=== PATIENT | male | born 1970 | race Caucasian/White ===

== ENCOUNTER 2023-11-08 15:49 | Inpatient (IN) | payer OTHER ==
[2023-11-08 17:45] VITALS: BMI 25.8
[2023-11-08] MEDS ORDERED: NICOTINE POLACRILEX 2 MG LOZENGE BC PRN (19:40)
[2023-11-08] MEDS ORDERED: P-EPHED 60MG/TRIPROLIDI 2.5MG TABLET PO PRN (19:40)
[2023-11-08] MEDS ORDERED: ACETAMINOPHEN 325 MG TABLET (FP) PO PRN (19:40)
[2023-11-08] MEDS ORDERED: LOPERAMIDE HCL 2 MG CAPSULE PO PRN (19:40)
[2023-11-08] MEDS ORDERED: BISMUTH SUBSALICYLATE 524 MG/30 ML PO PRN (19:40)
[2023-11-08] MEDS ORDERED: BENZONATATE 200 MG CAPSULE PO PRN (19:40)
[2023-11-08] MEDS ORDERED: BENZOCAINE/MENTHOL (CHLORASEPTIC ) LOZENGE MM PRN (19:40)
[2023-11-08] MEDS ORDERED: DICYCLOMINE HCL 10 MG CAPSULE PO PRN (19:40)
[2023-11-08] MEDS ORDERED: MAGNESIUM HYDROX 2400MG/30ML ORAL SUSPENSION 30 ML CUP PO PRN (19:40)
[2023-11-08] MEDS ORDERED: POLYETHYLENE GLYCOL (HEALTHYLAX) 3350 17 GM PACKET PO PRN (19:40)
[2023-11-08] MEDS ORDERED: IBUPROFEN 400 MG TABLET (FP) PO PRN (19:40)
[2023-11-08] MEDS ORDERED: IBUPROFEN 600 MG TABLET (FP) PO PRN (19:40)
[2023-11-08] MEDS ORDERED: ONDANSETRON *ODT* 4 MG TABLET SL PRN (19:40)
[2023-11-08] MEDS ORDERED: NALOXONE (NARCAN) HCL 4 MG/0.1 ML SPRAY NS PRN (19:40)
[2023-11-08] MEDS ORDERED: guaiFENesin 600 MG TABLET.ER (FP) PO PRN (19:40)
[2023-11-08] MEDS ORDERED: NALOXONE HCL 0.4 MG/ML VIAL IM PRN (19:40)
[2023-11-08] MEDS ORDERED: diazePAM 5 MG TABLET ONE (22:05)
[2023-11-08] MEDS ORDERED: MELATONIN 5 MG TABLETS ONE (22:05)
[2023-11-08] MEDS: diazePAM 5 MG TABLET PO SCH (22:10)
[2023-11-08] MEDS: MELATONIN 5 MG TABLETS PO SCH (22:11)
[2023-11-08] MEDS: THIAMINE 100 MG TABLET PO SCH (22:11)
[2023-11-09] MEDS: methaDONE 40 MG, methaDONE 20 MG PO SCH (10:24)
[2023-11-09] MEDS: PRENATAL VITAMINS W/ FOLIC ACID TABLET (FP) PO SCH (10:25)
[2023-11-09] MEDS: methaDONE HCL 10 MG TABLET PO SCH (10:50)
[2023-11-09] MEDS: diazePAM 5 MG TABLET PO PRN (12:47)
[2023-11-09 12:50] LABS: HEMATOCRIT 39.1 % (35.4-49); HEMOGLOBIN 13.2 GM/dL (11.7-16.9); MCH 29.6 pg (25.7-33.7); MCHC 33.6 g/dl (32.0-35.9); MEAN PLT VOLUME 9.5 fl (7.5-11.1); PLATELET COUNT 201 10^3/uL (134-434); RBC 4.45 M/mm3 (4.00-5.60); RDW 14.6 % (11.9-15.9); WHITE BLOOD COUNT 5.7 K/mm3 (4.0-10.0)
[2023-11-09 14:08] LABS: POTASSIUM 4.7 mmol/L (3.5-5.1)
[2023-11-09 14:11] LABS: ALBUMIN 3.4 g/dl (3.4-5.0); BLOOD UREA NITROGEN 27.3 mg/dL (7-18); CALCIUM 8.6 mg/dL (8.5-10.1)
[2023-11-09 14:14] LABS: CREATININE 0.8 mg/dL (0.55-1.3)
[2023-11-09 14:15] LABS: BILIRUBIN,TOTAL 0.4 mg/dL (0.2-1)
[2023-11-09] MEDS: NICOTINE POLACRILEX 2 MG GUM BUC PRN (16:49)
[2023-11-09] MEDS: METHOCARBAMOL 500 MG TABLET PO PRN (22:43)
[2023-11-10] MEDS: diazePAM 5 MG TABLET PO SCH (05:52)
[2023-11-11] MEDS: diazePAM 5 MG TABLET PO SCH (05:56)
[2023-11-11] MEDS ORDERED: hydrOXYzine PAMOATE 25 MG CAPSULE (FP) PO PRN (13:42)
[2023-11-11] MEDS: MAG HYDROX/AL HYDROX/SIMETH 30 ML UNIT-DOSE CUP PO PRN (17:20)
[2023-11-11] MEDS: METHOCARBAMOL 500 MG TABLET PO PRN (21:52)
[2023-11-12] MEDS: diazePAM 5 MG TABLET PO ONE (06:02)
[2023-11-12 08:52] VITALS: BP 140/90; PULSE 80; RESP 16; TEMP 97.7
== END 2023-11-12 12:10 | disposition other institution (70) | DRG 897 ==
LOC: YASAS 15:49 → Y3N 20:48
PROVIDERS: ADMIT Allergy & Immunology; ATTEND Surgery
PROC: HZ2ZZZZ Detoxification Services for Substance Abuse Treatment (ICD-10-PCS; principal; 2023-11-08)
DX: F13.230 Sedative, hypnotic or anxiolytic dependence with withdrawal, uncomplicated (principal); F11.20 Opioid dependence, uncomplicated; F10.230 Alcohol dependence with withdrawal, uncomplicated; F43.10 Post-traumatic stress disorder, unspecified; F17.210 Nicotine dependence, cigarettes, uncomplicated; I10 Essential (primary) hypertension; N40.0 Benign prostatic hyperplasia without lower urinary tract symptoms; Z86.19 Personal history of other infectious and parasitic diseases; Z99.89 Dependence on other enabling machines and devices; Z88.8 Allergy status to other drugs, medicaments and biological substances
CPT/HCPCS: 36415; 80053; 80305; 80307; 85027; 86780; 86803; 87522; 87811; 93005; 93010

== ENCOUNTER 2023-11-12 12:13 | Inpatient (IN) | payer OTHER ==
[2023-11-12] MEDS ORDERED: hydrOXYzine PAMOATE 25 MG CAPSULE (FP) PO PRN (14:47)
[2023-11-12] MEDS ORDERED: IBUPROFEN 400 MG TABLET (FP) PO PRN (14:47)
[2023-11-12] MEDS ORDERED: NALOXONE (NARCAN) HCL 4 MG/0.1 ML SPRAY NS PRN (14:47)
[2023-11-12] MEDS ORDERED: NALOXONE HCL 0.4 MG/ML VIAL IVPUSH PRN (14:47)
[2023-11-12] MEDS ORDERED: guaiFENesin 600 MG TABLET.ER (FP) PO PRN (14:47)
[2023-11-12] MEDS ORDERED: BENZOCAINE/MENTHOL (CHLORASEPTIC ) LOZENGE MM PRN (14:47)
[2023-11-12] MEDS ORDERED: BENZONATATE 200 MG CAPSULE PO PRN (14:47)
[2023-11-12] MEDS ORDERED: ACETAMINOPHEN 325 MG TABLET (FP) PO PRN (14:47)
[2023-11-12] MEDS ORDERED: AMMONIUM LACTATE 12% LOTION 225 GM BOTTLE TP PRN (14:47)
[2023-11-12] MEDS ORDERED: LOPERAMIDE HCL 2 MG CAPSULE PO PRN (14:47)
[2023-11-12] MEDS: GABAPENTIN 300 MG CAPSULE PO ONE (16:12)
[2023-11-12] MEDS: METHOCARBAMOL 500 MG TABLET PO PRN (16:13)
[2023-11-12] MEDS: MAG HYDROX/AL HYDROX/SIMETH 30 ML UNIT-DOSE CUP PO PRN (16:49)
[2023-11-12] MEDS: MAGNESIUM HYDROX 2400MG/30ML ORAL SUSPENSION 30 ML CUP PO PRN (20:51)
[2023-11-12] MEDS: traZODone HCL 50 MG TABLET (FP) PO SCH (21:17)
[2023-11-12] MEDS: THIAMINE 100 MG TABLET PO SCH (21:17)
[2023-11-12] MEDS: LISINOPRIL 10 MG TABLET PO SCH (21:17)
[2023-11-12] MEDS: GABAPENTIN 300 MG CAPSULE PO SCH (21:17)
[2023-11-12] MEDS: IBUPROFEN 600 MG TABLET (FP) PO PRN (21:18)
[2023-11-12] MEDS ORDERED: MELATONIN 5 MG TABLETS PO SCH (22:00)
[2023-11-13] MEDS ORDERED: methaDONE HCL 10 MG TABLET PO SCH (06:15)
[2023-11-13] MEDS: methaDONE 40 MG, methaDONE 20 MG PO SCH (06:25)
[2023-11-13] MEDS: NICOTINE 7 MG/24 HOURS TOPICAL PATCH TD SCH (10:02)
[2023-11-13] MEDS: PRENATAL VITAMINS W/ FOLIC ACID TABLET (FP) PO SCH (10:03)
[2023-11-13] MEDS: NICOTINE POLACRILEX 4 MG GUM BUC PRN (21:16)
[2023-11-13] MEDS: hydrOXYzine PAMOATE 25 MG CAPSULE (FP) PO PRN (21:16)
[2023-11-15] MEDS: NICOTINE POLACRILEX 4 MG LOZENGE BC PRN (06:01)
[2023-11-19] MEDS: methaDONE 40 MG, methaDONE 10 MG PO SCH (05:43)
[2023-11-19] MEDS ORDERED: methaDONE HCL 40 MG DISPERSABLE TABLET PO SCH (06:15)
[2023-11-19] MEDS: METHOCARBAMOL 500 MG TABLET PO SCH (21:12)
[2023-11-20] MEDS: TETRAHYDROZOLINE HCL EYE DROPS OU PRN (05:41)
[2023-11-20] MEDS: SELENIUM SULFIDE 2.25% 180 ML SHAMPOO TP SCH (13:08)
[2023-11-21] MEDS: methaDONE HCL 40 MG DISPERSABLE TABLET PO SCH (05:37)
[2023-11-21] MEDS: POLYETHYLENE GLYCOL (HEALTHYLAX) 3350 17 GM PACKET PO PRN (12:12)
[2023-11-26] MEDS ORDERED: methaDONE HCL 40 MG DISPERSABLE TABLET PO SCH (06:00)
[2023-11-26 06:46] VITALS: TEMP 97.5
[2023-11-26] MEDS: hydrOXYzine PAMOATE 50 MG CAPSULE (FP) PO PRN (21:35)
[2023-11-27 06:59] VITALS: RESP 16
[2023-11-27 09:18] VITALS: BP 108/63; PULSE 69
== END 2023-11-27 14:37 | disposition home or self-care (01) | DRG 895 ==
LOC: YASAS 12:13 → Y3W 12:15
PROVIDERS: ADMIT Allergy & Immunology; ATTEND Psychiatry & Neurology Pain Medicine
PROC: HZ42ZZZ Group Counseling for Substance Abuse Treatment, Cognitive-Behavioral (ICD-10-PCS; principal; 2023-11-12)
DX: F13.20 Sedative, hypnotic or anxiolytic dependence, uncomplicated (principal); F11.20 Opioid dependence, uncomplicated; F19.282 Other psychoactive substance dependence with psychoactive substance-induced sleep disorder; F19.280 Other psychoactive substance dependence with psychoactive substance-induced anxiety disorder; Z59.01 Sheltered homelessness; F17.210 Nicotine dependence, cigarettes, uncomplicated; F43.10 Post-traumatic stress disorder, unspecified; I10 Essential (primary) hypertension; L21.0 Seborrhea capitis; M54.50 Low back pain, unspecified; G89.29 Other chronic pain; B18.2 Chronic viral hepatitis C; N40.0 Benign prostatic hyperplasia without lower urinary tract symptoms; Z86.14 Personal history of Methicillin resistant Staphylococcus aureus infection; Z62.810 Personal history of physical and sexual abuse in childhood; Z63.8 Other specified problems related to primary support group; Z99.89 Dependence on other enabling machines and devices

== ENCOUNTER 2024-01-10 15:20 | Inpatient (IN) | payer OTHER ==
[2024-01-10 16:40] VITALS: BMI 28.2
[2024-01-10] MEDS ORDERED: guaiFENesin 600 MG TABLET.ER (FP) PO PRN (19:14)
[2024-01-10] MEDS ORDERED: BISMUTH SUBSALICYLATE 524 MG/30 ML PO PRN (19:14)
[2024-01-10] MEDS ORDERED: ACETAMINOPHEN 325 MG TABLET (FP) PO PRN (19:14)
[2024-01-10] MEDS ORDERED: POLYETHYLENE GLYCOL (HEALTHYLAX) 3350 17 GM PACKET PO PRN (19:14)
[2024-01-10] MEDS ORDERED: NALOXONE HCL 0.4 MG/ML VIAL IM PRN (19:14)
[2024-01-10] MEDS ORDERED: IBUPROFEN 400 MG TABLET (FP) PO PRN (19:14)
[2024-01-10] MEDS ORDERED: LOPERAMIDE HCL 2 MG CAPSULE PO PRN (19:14)
[2024-01-10] MEDS ORDERED: BENZONATATE 200 MG CAPSULE PO PRN (19:14)
[2024-01-10] MEDS ORDERED: MAGNESIUM HYDROX 2400MG/30ML ORAL SUSPENSION 30 ML CUP PO PRN (19:14)
[2024-01-10] MEDS ORDERED: BENZOCAINE/MENTHOL (CHLORASEPTIC ) LOZENGE MM PRN (19:14)
[2024-01-10] MEDS ORDERED: DICYCLOMINE HCL 10 MG CAPSULE PO PRN (19:14)
[2024-01-10] MEDS ORDERED: NALOXONE (NARCAN) HCL 4 MG/0.1 ML SPRAY NS PRN (19:14)
[2024-01-10] MEDS: diazePAM 5 MG TABLET PO PRN (20:42)
[2024-01-10] MEDS: THIAMINE 100 MG TABLET PO SCH (22:29)
[2024-01-10] MEDS: MELATONIN 5 MG TABLETS PO SCH (22:29)
[2024-01-10] MEDS: IBUPROFEN 600 MG TABLET (FP) PO PRN (22:31)
[2024-01-10] MEDS: BACITRACIN 0.9 GM PACKET TP ONE (23:19)
[2024-01-10] MEDS: diazePAM 5 MG TABLET PO SCH (23:19)
[2024-01-11] MEDS: ONDANSETRON *ODT* 4 MG TABLET SL PRN (04:17)
[2024-01-11 09:25] LABS: HEMATOCRIT 35.1 % (35.4-49); HEMOGLOBIN 12.3 GM/dL (11.7-16.9); MCH 30.4 pg (25.7-33.7); MEAN PLT VOLUME 9.2 fl (7.5-11.1); PLATELET COUNT 200 10^3/uL (134-434); RBC 4.04 M/mm3 (4.00-5.60); RDW 13.9 % (11.9-15.9); WHITE BLOOD COUNT 5.5 K/mm3 (4.0-10.0)
[2024-01-11 09:28] LABS: POTASSIUM 4.4 mmol/L (3.5-5.1)
[2024-01-11 09:35] LABS: ALBUMIN 3.9 g/dl (3.4-5.0); BLOOD UREA NITROGEN 16.3 mg/dL (7-18)
[2024-01-11 09:38] LABS: CREATININE 0.9 mg/dL (0.55-1.3)
[2024-01-11 09:40] LABS: BILIRUBIN,TOTAL 1.3 mg/dL (0.2-1); TOT PROT 7.3 g/dl (6.4-8.2)
[2024-01-11] MEDS: LISINOPRIL 10 MG TABLET PO SCH (10:19)
[2024-01-11] MEDS: methaDONE 40 MG, methaDONE 20 MG PO SCH (10:19)
[2024-01-11] MEDS: PRENATAL VITAMINS W/ FOLIC ACID TABLET (FP) PO SCH (10:19)
[2024-01-11] MEDS: NICOTINE POLACRILEX 2 MG GUM BUC PRN (10:21)
[2024-01-11] MEDS: methaDONE HCL 10 MG TABLET PO SCH (10:25)
[2024-01-11] MEDS: METHOCARBAMOL 500 MG TABLET PO PRN (12:12)
[2024-01-11] MEDS: MAG HYDROX/AL HYDROX/SIMETH 30 ML UNIT-DOSE CUP PO PRN (19:59)
[2024-01-12] MEDS: diazePAM 5 MG TABLET PO SCH (07:05)
[2024-01-12] MEDS: traZODone HCL 50 MG TABLET (FP) PO SCH (22:23)
[2024-01-13] MEDS: diazePAM 5 MG TABLET PO SCH (05:41)
[2024-01-13] MEDS: TAMSULOSIN HCL 0.4 MG CAP PO SCH (08:45)
[2024-01-13] MEDS: methaDONE HCL 10 MG TABLET PO ONE (11:04)
[2024-01-13] MEDS: TRIMETHOBENZAMIDE HCL 200MG/2ML INJ IM ONE (15:25)
[2024-01-13] MEDS: diazePAM 5 MG TABLET PO ONE (23:13)
[2024-01-14] MEDS: diazePAM 5 MG TABLET PO ONE (05:49)
[2024-01-14] MEDS ORDERED: diazePAM 5 MG TABLET PO ONE (06:00)
[2024-01-14 08:45] VITALS: BP 103/66; PULSE 94; RESP 16; TEMP 98
== END 2024-01-14 09:41 | disposition home or self-care (01) | DRG 897 ==
LOC: YASAS 15:20 → Y6N 19:31
PROVIDERS: ADMIT Allergy & Immunology; ATTEND Surgery
PROC: HZ2ZZZZ Detoxification Services for Substance Abuse Treatment (ICD-10-PCS; principal; 2024-01-10)
DX: F13.230 Sedative, hypnotic or anxiolytic dependence with withdrawal, uncomplicated (principal); F11.20 Opioid dependence, uncomplicated; Z59.01 Sheltered homelessness; F17.210 Nicotine dependence, cigarettes, uncomplicated; F41.0 Panic disorder [episodic paroxysmal anxiety]; F43.10 Post-traumatic stress disorder, unspecified; F41.9 Anxiety disorder, unspecified; F19.982 Other psychoactive substance use, unspecified with psychoactive substance-induced sleep disorder; F19.980 Other psychoactive substance use, unspecified with psychoactive substance-induced anxiety disorder; I10 Essential (primary) hypertension; J45.20 Mild intermittent asthma, uncomplicated; N40.0 Benign prostatic hyperplasia without lower urinary tract symptoms; M54.9 Dorsalgia, unspecified; G89.29 Other chronic pain; R26.2 Difficulty in walking, not elsewhere classified; Z99.89 Dependence on other enabling machines and devices; Z88.8 Allergy status to other drugs, medicaments and biological substances; Z87.39 Personal history of other diseases of the musculoskeletal system and connective tissue; Z62.810 Personal history of physical and sexual abuse in childhood; Z86.14 Personal history of Methicillin resistant Staphylococcus aureus infection; Z86.19 Personal history of other infectious and parasitic diseases; Z56.0 Unemployment, unspecified
CPT/HCPCS: 36415; 80053; 80305; 80307; 85027; Q0162